=== PATIENT | male | born 1940 | race Caucasian/White ===

== ENCOUNTER 2020-08-14 11:56 | Inpatient (IN) | payer BC ==
[~2020-08-14] VITALS: Ht 182.9 cm; Wt 83.9 kg
[2020-08-14 13:43] LABS: ABSOLUTE NEUTROPHILS 2.2 thou/uL (1.4-8.2); BASOPHILS 0.5 % (0.0-2.0); EOSINOPHILS 3.1 % (0.0-3.0); HEMATOCRIT 34.8 % (42.0-52.0); HEMOGLOBIN 11.4 gm/dL (14.0-18.0); MCH 31.9 pg (26.0-34.0); MCHC 32.9 g/dL (28.0-37.0); MCV 97.2 fL (80.0-100.0); MONOCYTES 11.8 % (1.0-8.0); PLATELET COUNT 99 thou/uL (150-400); POLYS 65.6 % (36.0-66.0); RBC 3.58 mil/uL (4.50-6.00); RDW 16.2 % (10.5-14.5); WBC 3.3 thou/uL (4.0-11.0)
[2020-08-14 15:04] LABS: ALBUMIN 2.4 g/dL (3.4-5.0); ANION GAP 9 mmol/L (7-16); BUN 12 mg/dL (7-18); CALCIUM 8.1 mg/dL (8.5-10.1); CHLORIDE 103 mmol/L (98-107); CHOLESTEROL 122 mg/dL (<200); CO2 26 mmol/L (21-32); CREATININE 1.1 mg/dL (0.7-1.3); GLUCOSE 96 mg/dL (74-106); HDL CHOLESTEROL 38 mg/dL (>40); LDL CHOLESTEROL 75 mg/dL (<100); POTASSIUM 4.2 mmol/L (3.5-5.1); SGOT 29 U/L (15-37); SGPT 31 U/L (30-65); SODIUM 138 mmol/L (136-145); TC:HDL 3.2 Ratio (Not establshd); TOTAL PROTEIN 6.4 g/dL (6.4-8.2); TRIGLYCERIDE 47 mg/dL (<150); TROPONIN-I 0.24 ng/mL (<0.06); VLDL 9 mg/dL (<40)
[2020-08-14 15:45] VITALS: BP 119/61
[2020-08-14 15:58] LABS: FOLIC ACID 4.3 ng/mL (8.6-58.9)
[2020-08-14] MEDS ORDERED: TYLENOL325 M1 PO (16:10)
[2020-08-14] MEDS ORDERED: ELIQUIS5 MG PO (16:18)
[2020-08-14] MEDS ORDERED: FLONASE 0.05%50 MCG NASAL (16:21)
[2020-08-14] MEDS ORDERED: LISINOPRIL10 MG PO (16:22)
[2020-08-14] MEDS ORDERED: PROTONIX40 M2 PO (16:23)
[2020-08-14] MEDS ORDERED: VITAMIN D350 MC3 PO (16:25)
[2020-08-14 21:00] VITALS: BP 108/55
[2020-08-15 04:03] LABS: HEMATOCRIT 32.9 % (42.0-52.0); HEMOGLOBIN 11.1 gm/dL (14.0-18.0); MCH 32.6 pg (26.0-34.0); MCHC 33.8 g/dL (28.0-37.0); MCV 96.3 fL (80.0-100.0); RBC 3.42 mil/uL (4.50-6.00); RDW 16.4 % (10.5-14.5); WBC 3.2 thou/uL (4.0-11.0)
[2020-08-15 04:15] LABS: CALCIUM 8.1 mg/dL (8.5-10.1); CREATININE 1.1 mg/dL (0.7-1.3); POTASSIUM 4.2 mmol/L (3.5-5.1)
[2020-08-15 04:31] VITALS: BP 106/59
[2020-08-15 07:16] VITALS: BP 111/62
[2020-08-15 11:27] VITALS: BP 102/62
[2020-08-15 15:50] VITALS: BP 108/59
[2020-08-15 20:03] VITALS: BP 119/66
[2020-08-16 04:33] VITALS: BP 102/56
[2020-08-16 08:01] VITALS: BP 106/58
[2020-08-16] MEDS ORDERED: NORCO5 PO (09:48)
[2020-08-16 11:00] VITALS: BP 106/58
== END 2020-08-16 12:30 | disposition home or self-care (01) | DRG 175 ==
LOC: 2N 11:56
PROVIDERS: ADMIT Hospitalist; ATTEND Hospitalist
DX: I26.99 Other pulmonary embolism without acute cor pulmonale (principal); E43 Unspecified severe protein-calorie malnutrition; I50.33 Acute on chronic diastolic (congestive) heart failure; D61.818 Other pancytopenia; R77.8 Other specified abnormalities of plasma proteins; I10 Essential (primary) hypertension; K21.9 Gastro-esophageal reflux disease without esophagitis; E78.5 Hyperlipidemia, unspecified; I27.20 Pulmonary hypertension, unspecified; Z86.718 Personal history of other venous thrombosis and embolism; Z92.21 Personal history of antineoplastic chemotherapy; Z85.01 Personal history of malignant neoplasm of esophagus; Z79.899 Other long term (current) drug therapy
CPT/HCPCS: 10081

== ENCOUNTER → 2020-09-02 | Outpatient (CLI) | payer BC ==
[~2020-09-02] MED LIST: ELIQUIS5 MG PO; FLONASE 0.05%50 MCG NASAL; LISINOPRIL10 MG PO; NORCO5 PO; PROTONIX40 M2 PO; TYLENOL325 M1 PO; VITAMIN D350 MC3 PO
== END ==
LOC: SJCVCIMAG 09:01
PROVIDERS: ATTEND Internal Medicine
DX: I08.0 Rheumatic disorders of both mitral and aortic valves (principal); I11.0 Hypertensive heart disease with heart failure; I50.9 Heart failure, unspecified; R00.0 Tachycardia, unspecified; R07.89 Other chest pain; E78.5 Hyperlipidemia, unspecified; Z87.891 Personal history of nicotine dependence; Z79.899 Other long term (current) drug therapy

== ENCOUNTER → 2020-11-02 | Outpatient (CLI) | payer BC | LOC: SJCVC 09:19 | PROVIDERS: ATTEND Internal Medicine | DX: I10 Essential (primary) hypertension (principal); K21.9 Gastro-esophageal reflux disease without esophagitis; E78.5 Hyperlipidemia, unspecified; E03.9 Hypothyroidism, unspecified; Z79.899 Other long term (current) drug therapy; Z86.718 Personal history of other venous thrombosis and embolism; Z86.711 Personal history of pulmonary embolism; Z87.891 Personal history of nicotine dependence ==

== ENCOUNTER 2021-03-04 12:42 | Inpatient (IN) | payer OTHER ==
[~2021-03-04] VITALS: Ht 182.9 cm; Wt 81.1 kg
[~2021-03-04 12:42] MED LIST changes: -TYLENOL325 M1 PO; +TYLENOL325 M1 RECTAL
[2021-03-04 16:15] VITALS: BP 99/66
--- NOTE | 2021-03-04 18:05 | NUR ---
Pt received on to unit @ approx. 1615. Pt A&O x4, on 3L NC, ST on the monitor. Pt was direct admit from [place] for weakness, difficulty swallowing, & elevated trop. Admission assessment completed, forms signed & posted in chart. Family updated.
[2021-03-04 18:07] LABS: URINE BLOOD NEGATIVE (Negative); URINE CLARITY CLEAR; URINE COLOR YELLOW; URINE GLUCOSE-RANDOM* NEGATIVE (Negative); URINE KETONES TRACE (Negative); URINE LEUKOCYTES-REFLEX NEGATIVE (Negative); URINE NITRITE-REFLEX NEGATIVE (Negative); URINE PROTEIN (DIPSTICK) TRACE (Negative); URINE SPECIFIC GRAVITY 1.025 (1.005-1.035); URINE UROBILINOGEN 0.2 E.U./dl (0.2-1.0)
[2021-03-04 18:11] LABS: ICTOTEST (BILI CONFIRMATORY) Negative (Negative); URINE BILIRUBIN NEGATIVE (Negative)
[2021-03-04] MEDS ORDERED: LASIX 40 MG TAB40 MG PO (19:04)
[2021-03-04] MEDS ORDERED: K-TAB ER20 MEQ PO (19:05)
[2021-03-04 19:59] VITALS: BP 99/63
[2021-03-05] VITALS (17 sets, daily range): BP systolic 71–124; BP diastolic 42–68
--- NOTE | 2021-03-05 04:32 | NUR ---
RECEIVED THE PATIENT AT 1900H.ASSESSMENT DONE CHARTED.MEDS GIVEN PER MAY.NO COMPLAINTS OF PAIN DURING THIS SHIFT.ALL NEEDS ATTENDED.TO CONTINOUSLY MONITOR.
[2021-03-05 04:43] LABS: ABSOLUTE NEUTROPHILS 3.2 thou/uL (1.4-8.2); BASOPHILS 0.8 % (0.0-2.0); EOSINOPHILS 3.2 % (0.0-3.0); HEMATOCRIT 28.6 % (42.0-52.0); HEMOGLOBIN 8.7 gm/dL (14.0-18.0); LYMPHOCYTES 14.9 % (24.0-44.0); MCH 24.9 pg (26.0-34.0); MCHC 30.5 g/dL (28.0-37.0); MCV 81.8 fL (80.0-100.0); MONOCYTES 11.3 % (1.0-8.0); PLATELET COUNT 116 thou/uL (150-400); POLYS 69.8 % (36.0-66.0); RDW 20.6 % (10.5-14.5); WBC 4.6 thou/uL (4.0-11.0)
[2021-03-05 04:50] LABS: ALBUMIN 2.3 g/dL (3.4-5.0); CREATININE 1.1 mg/dL (0.7-1.3); MAGNESIUM 1.6 mg/dL (1.8-2.4); POTASSIUM 4.5 mmol/L (3.5-5.1); TOTAL BILIRUBIN 0.9 mg/dL (0.2-1.0); TOTAL PROTEIN 5.6 g/dL (6.4-8.2)
[2021-03-05 04:54] LABS: CHOLESTEROL 92 mg/dL (<200); HDL CHOLESTEROL 26 mg/dL (>40); LDL CHOLESTEROL 58 mg/dL (<100); TC:HDL 3.5 Ratio (Not establshd); TRIGLYCERIDE 42 mg/dL (<150); VLDL 8 mg/dL (<40)
[2021-03-05 04:55] LABS: SERUM ASSESSMENT Clear
--- NOTE | 2021-03-05 10:51 | EKG ---
[address] [address] ELECTROCARDIOGRAM REPORT Name: LIZZIE VICENTE V Room #: 214-P ADM IN M.R.#: [id number] Admission: 03/04/21 Attend Phys: Reg Albright MD Discharge: Date of : 38 Report #: [id number] [facility] Test Date: 2021-03-05 Test Time: 07:52:51 Pat Name: LIZZIE VICENTE Department: Room: 214 P Gender: M Clerical Administrator: : 1940 Requested By: Reg Albright Order Number: [id number] MD: Michel Bella Measurements Intervals [place] Rate: 104 P: 12 IA: 147 QRS: -21 QRSD: 91 T: 49 QT: 363 QTc: 478 Interpretive Statements Sinus tachycardia Inferior infarct, old Compared to ECG 03/04/2021 18:43:38 No significant changes Electronically Signed On 03-05-2021 10:51:07 PLATFORM CONSULTANT by Michel Bella [email or web address] <ELECTRONICALLY SIGNED> By: Michel Bella MD 03/05/21 1051 [id number] Michel Bella MD /EPI
--- NOTE | 2021-03-05 10:57 | EKG ---
[address] [address] ELECTROCARDIOGRAM REPORT Name: LIZZIE VICENTE V Room #: 214-P ADM IN M.R.#: [id number] Admission: 03/04/21 Attend Phys: Reg Albright MD Discharge: Date of : 38 Report #: [id number] [facility] Test Date: 2021-03-04 Test Time: 18:43:38 Pat Name: LIZZIE VICENTE Department: Room: 214 P Gender: M Donor Services Manager: SONDRA : 1940 Requested By: Reg Albright Order Number: [id number] MD: Michel Bella Measurements Intervals [place] Rate: 115 P: 3 MN: 123 QRS: -18 QRSD: 98 T: QT: 339 QTc: 469 Interpretive Statements Sinus tachycardia Inferior infarct, old Anteroseptal infarct, old No previous ECG available for comparison Electronically Signed On 03-05-2021 10:57:18 TOLL TEST DESK WORKER by Michel Bella [email or web address] <ELECTRONICALLY SIGNED> By: Michel Bella MD 03/05/21 1057 1843 [id number] Michel Bella MD /EPI
--- NOTE | 2021-03-05 17:07 | 2DMMODE ---
[facility] [place] [address] 2 D/M-MODE ECHOCARDIOGRAM Name: LIZZIE VICENTE V Room #: 214-P ADM IN M.R.#: [id number] Admission: 03/04/21 Attend Phys: eRg Albright MD Discharge: Date of : 38 Report #: [id number] THIS REPORT FOR: cc: FAM - Family physician unknown FAM - Family physician unknown Michel Bella MD ~ APPROVED REPORT Study performed: 03/05/2021 11:08:33 EXAM: Comprehensive 2D, Doppler, and color-flow Echocardiogram Patient Location: In-Patient Room #: 214 Status: routine BSA: 2.00 HR: 115 bpm Rhythm: Atrial Fibrillation Other Information Study Quality: Adequate Indications Atrial Fibrillation 2D Dimensions IVSd: 10.49 (7-11mm) LVOT Diam: 22.77 (18-24mm) LVDd: 56.87 mm PWd: 8.90 (7-11mm) LVDs: 45.52 (25-40mm) Left Atrium: 46.19 (27-40mm) Aortic Root: 27.37 mm Volumes Left Atrial Volume (Systole) Single Plane 4CH: 57.90 mL Single Plane 2CH: 35.54 mL Aortic Valve AoV Peak Corey.: 1.29 m/s AO Peak Gr.: 7.19 mmHg LVOT Max P.45 mmHg LVOT Max V: 0.78 m/s HARPAL Vmax: 2.47 cm2 Tricuspid Valve [facility] [address] [place] [address] 2 D/M-MODE ECHOCARDIOGRAM Name: LIZZIE VICENTE V Room #: 214-P ADM IN M.R.#: [id number] Admission: 03/04/21 Attend Phys: Reg Albright MD Discharge: Date of : 38 Report #: [id number] Peak Corey.: 2.30 m/s TR Peak Gr.: 21.07 mmHg Left Ventricle Left ventricle is mildly dilated. There is global hypokinesis of the left ventricle. There is normal left ventricular wall thickness. Left ventricular systolic function is severely decreased. LVEF is 25%. Right Ventricle The right ventricle is normal size. The right ventricular systolic function is normal. Atria The left atrium size is normal. The right atrium size is normal. Aortic Valve The aortic valve is normal in structure. Mild aortic regurgitation. There is no aortic valvular stenosis. Mitral Valve The mitral valve is normal in structure. Mild mitral regurgitation. No evidence of mitral valve stenosis. Tricuspid Valve The tricuspid valve is normal in structure. Mild tricuspid regurgitation. Estimated PAP 40 mmHg. Pulmonic Valve The pulmonary valve is normal in structure. There is no pulmonic valvular regurgitation. Great Vessels The aortic root is normal in size. IVC is dilated and collapses <50% with inspiration. Pericardium There is no pericardial effusion. Critical Notification Critical Value: No <Conclusion> Left ventricle is mildly dilated. Left ventricular systolic function is severely decreased. [facility] [address] [place] [address] 2 D/M-MODE ECHOCARDIOGRAM Name: LIZZIE VICENTE V Room #: 214-P ADM IN M.R.#: [id number] Admission: 03/04/21 Attend Phys: Reg Albright MD Discharge: Date of : 38 Report #: [id number] The right ventricle is normal size. The left atrium size is normal. Mild aortic regurgitation. Mild mitral regurgitation. Mild tricuspid regurgitation. Estimated PAP 40 mmHg. <ELECTRONICALLY SIGNED> By: Michel Bella MD 03/05/211705 05 05 Michel Bella MD /INF
--- NOTE | 2021-03-05 18:14 | NUR ---
At approximately 1600, patient began to become more tachycardic,short of breathe, and fatigued. Called Dr. Albright to update and we reviewed his care. Dr. Albright spoke to the patient to discuss his wishes, POC, and different treatment options. Osmin decided to be DNR and medically treat his CHF and SOB. Lasix and brething treatment was given and help relieved symptoms. Step son was called and update per patietn request. Will continue to monitor.
[2021-03-06] VITALS (63 sets, daily range): BP systolic 76–106; BP diastolic 44–74
--- NOTE | 2021-03-06 00:53 | NUR ---
PT ARRIVED TO ICU ACCOMPANIED BY CCU RN, GABE, AND EKG TECHNICIAN, G, AT 0010. LEVOPHED GTT STARTED FOR HYPOTENSION PER ORDER. PT DROWSY AND ORIENTED X4. PT DENIES ANY PAIN/DISCOMFORT. ST WITH FREQUENT PVCs ON THE MONITOR. EDEMA TO BLE AND JVD NOTED. PT ON 6L NC ON ARRIVAL. DENIES ANY SOB OR DIFFICULTY BREATHING. WILL CONTINUE TO MONITOR.
--- NOTE | 2021-03-06 02:27 | NUR ---
RECEIVED PATIENT AT 1900H.PATIENT IS ALERT AND ORIENTED X4.APPEARS TO HAVE SHORTNESS OF BREATH, TACHYPNEIC RESPIRATION IS 30'S, HAVING SOME WHEEZING, SATURATING 98% ON NASAL CANNULA AT 6LPM.PATIENT IS TACHYCARDIC, HR IS 150-160'S.EKG DONE AND IT WAS SHOWING SVT, INITIAL BLOOD PRESSURE WAS 112/54MMHG.INFORMED REVENUE OFFICER ON DUTY OF THE PATIENT'S CURRENT STATUS.SHE ORDERED TO GIVE METOPROLOL 2.5MG STAT THEN ANOTHER 2.5 MG AFTER 30 MINUTES IF BP IS OK.ORDERS CARRIED OUT.CALLED CARDIOLOGY AND SPOKE WITH DR. JOLENE FRY AND INFORMED HIM OF THE PATIENT'S CURRENT STATUS.HE ORDERED TO INSERT A OROZCO CATHETER AND TO GIVE STAT DOSE OF LASIX 40 MG IV AND TO START ON LASIX INFUSION.OROZCO CATHETER INSERTED ASEPTICALLY.AFTER THE FIRST DOSE OF METOPROLOL 2.4 MG, BLOOD PRESSURE DROPPED RECORDERED.BLOOD PRESSURE MONITORING DONE AND CHARTED.CALLED AGAIN DR. JOLENE FRY AND INFORMED HIM OF THE PATIENT'S CURRENT STATUS.ANOTHER DOSE OF METOPROLOL 2.5MG NOT BEEN GIVEN THE BLOOD PRESSURE IS ON THE LOW SIDE.DR. JOLENE FRY ORDERED TO HOLD GIVING THE STAT IV LASIX AND NOT TO START THE LASIX INFUSION.PATIENT HAD ABOUT 300 MLS OF URINE OUTPUT AFTER INSERTING THE OROZCO CATHETER.PATIENT APPEARS TO BE LESS LABORED BREATHING COMPARED BEFORE HE HAD URINE OUTPUT.MONITOR SHOWS SINUS TACHYCARDIA WITH RATE OF 120-130'S,DR. FRY INFORMED.BLOOD PRESSURE SLOWLY DROPS TO THE SYTOLIC OF 70'S, SEE VITAL SIGNS MONITORING.REVENUE OFFICER INFORMED OF THE PATIENT'S CURRENT VITAL SIGNS,REVENUE OFFICER ORDERED A DOSE OF ALBUMIN WHICH WAS GIVEN BUT BLOOD PRESSURE WAS STILL LOW.REVENUE OFFICER AND DR. JOLENE FRY WERE AWARE OF PATIENT'S DNR STATUS. PER REVENUE OFFICER TO TRANSFER PATIENT TO ICU TO BE STARTED ON LEVOPHED.TRANSFERED TO ICU AROUND 0010H, REPORT WAS GIVEN TO NURSE WILLIAMSON.
[2021-03-06 02:39] LABS: HEMOGLOBIN 8.9 gm/dL (14.0-18.0); MCH 24.7 pg (26.0-34.0); MCHC 30.6 g/dL (28.0-37.0); MCV 80.9 fL (80.0-100.0); RBC 3.59 mil/uL (4.50-6.00); RDW 20.9 % (10.5-14.5)
[2021-03-06 02:46] LABS: CREATININE 1.7 mg/dL (0.7-1.3); POTASSIUM 3.9 mmol/L (3.5-5.1)
[2021-03-06 02:47] LABS: WBC 20.4 thou/uL (4.0-11.0)
--- NOTE | 2021-03-06 04:00 | NUR ---
TRIED TO CONTACT THE PATIENT'S STEPSONALFIE OVER THE PHONE TO INFORM HIM OF THE PATIENT'S CURRENT SITUATION AND TO INFORM THAT THE PATIENT HAS BEEN MOVED TO THE ICU BUT I WAS UNABLE TO CONTACT HIM.RELAYED TO ICU NURSE CLAY THAT I WAS NOT ABLE TO CONTACT HIS STEPSON.
[2021-03-06 21:45] LABS: % SATURATION 5 % (20-39); IRON 16 ug/dL (65-175); TIBC 304 ug/dL (250-450)
[2021-03-07] VITALS (68 sets, daily range): BP systolic 87–116; BP diastolic 51–76
--- NOTE | 2021-03-07 | NUR ---
PT NPO NOW FOR AM EGD
[2021-03-07 04:36] LABS: INR 1.22; PROTIME 13.2 Seconds (10.5-12.1)
[2021-03-07 05:08] LABS: ABSOLUTE NEUTROPHILS 12.7 thou/uL (1.4-8.2); BASOPHILS 0.4 % (0.0-2.0); EOSINOPHILS 0.2 % (0.0-3.0); HEMATOCRIT 30.9 % (42.0-52.0); HEMOGLOBIN 9.2 gm/dL (14.0-18.0); LYMPHOCYTES 5.9 % (24.0-44.0); MCH 24.2 pg (26.0-34.0); MCHC 29.6 g/dL (28.0-37.0); MCV 81.7 fL (80.0-100.0); MONOCYTES 7.6 % (1.0-8.0); PLATELET COUNT 106 thou/uL (150-400); POLYS 85.9 % (36.0-66.0); RBC 3.78 mil/uL (4.50-6.00); RDW 21.8 % (10.5-14.5); WBC 14.7 thou/uL (4.0-11.0)
[2021-03-07 05:12] LABS: ALBUMIN 2.6 g/dL (3.4-5.0); CALCIUM 8.1 mg/dL (8.5-10.1); MAGNESIUM 2.4 mg/dL (1.8-2.4); POTASSIUM 4.3 mmol/L (3.5-5.1); TOTAL BILIRUBIN 1.1 mg/dL (0.2-1.0); TOTAL PROTEIN 5.9 g/dL (6.4-8.2)
--- NOTE | 2021-03-07 06:00 | NUR ---
PT AWAKE AND ALERT, ORIENTED. LEVOPHED GTT TITRATED TO 4 MCG SBP 100/65 MAP 70 REMAINS NPO FOR EGD THIS AM. BATHED. 230 CC UO THIS SHIFT. PT IS A DNR WILL CONT TO MONITOR.
--- NOTE | 2021-03-07 07:17 | NUR ---
PATIENT TRANSFERRED TO ICU, WILL NEED NEW ORDERS ONCE PATIENT IS MEDICALLY APPROPRIATE.
--- NOTE | 2021-03-07 07:30 | NUR ---
PTS SON ALFIE CALLLED AND GIVEN A CONDITION REPORT
--- NOTE | 2021-03-07 07:30 | NUR ---
DR ROGERS HERE TO SEE PT. MADE AWARE OF UO 230 CC. WANTS TO TRY TO\ WEAN OFF LEVO GTT BEFORE EGD
--- NOTE | 2021-03-07 07:53 | NUR ---
ORDERS FOR EVAL AND TREAT HOWEVER Pt TRANSFERRED TO ICU. WILL PLACE ON HOLD AND AWAIT NEW ORDERS WHEN APPROPRIATE
--- NOTE | 2021-03-07 08:54 | EKG ---
[place] [address] [facility] [employer] [place] [address] ELECTROCARDIOGRAM REPORT Name: LIZZIE VICENTE V Room #: 251-P ADM IN M.R.#: [id number] Admission: 03/04/21 Attend Phys: Reg Albright MD Discharge: Date of : 38 Report #: [id number] [facility] Test Date: 2021-03-05 Test Time: 19:37:36 Pat Name: LIZZIE VICENTE Department: Room: 251 Gender: M Sexual Health Physician: JUN : 1940 Requested By: Josi Hunt Order Number: [id number] MD: Chon Baca Measurements Intervals [place] Rate: 162 P: 268 ME: 90 QRS: -40 QRSD: 80 T: 162 QT: 301 QTc: 495 Interpretive Statements Supraventricular tachycardia Inferior infarct, old Poor R wave progression Lateral leads are also involved Compared to ECG 03/05/2021 07:52:51 Supraventricular tachycardia is now present Electronically Signed On 03-07-2021 8:54:14 BOARD SAW RUNNER by Chon Baca [email or web address] <ELECTRONICALLY SIGNED> By: Chon Baca MD, [facility] 03/07/2154 36 36 Chon Baca MD, [facility]ACC /EPI
--- NOTE | 2021-03-07 14:14 | NUR ---
PT ADMITTED RELATED TO CHEST PAIN. CM REVIEWED CHART AND SPOKE WITH CARE TEAM. PT'S CARES WERE DISCUSSED DURING ICU ROUNDS THIS DAY. CM MET WITH PT AT BEDSIDE THIS DAY. PT INDICATED HE LIVES IN A HOUSE IN [facility] AND THAT HIS STEP SON AND HIS RESIDE WITH HIM. PT INDICATED 2 STEPS TO ENTER AND NO STEPS HE USES INSIDE. 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 CM SPOKE WITH PT ABOUT ELECTING HOSPICE SERVICES UPON DC HOME AND HE IS AGREEABLE. CM ASKED IF PT HAD ANY PREFERANCE FOR [facility] AND HE INDICATED HE DIDN'T. CM CALLED AND SPOKE WITH ALFIE ALBARADO PT'S STEP SON AND HE INDICATED THAT PT HAD BEEN IN SERVICE WITH A HOSPICE AND THEY REVOKED SERVICES 02/28 TO PURSUE CURATIVE/DIAGNOSTIC TREATMENTS. STEP SON INDICATED THAT NOW THEY INDERSTAND WHAT'S GOING ON WITH PT AND ARE AGAIN ACCEPTING AND UNDERSTANDING OF ELECTION OF HOSPICE SERVIES. HE STATED NO PREFERANCE OF PROVIDERS JUST NOT [facility]. CM ASKED IF CM COULD SEND REFERRAL TO [facility] AND HE WAS AGREEABLE. CM FOLLOWED UP WITH PT AND ASKED IF REFERRAL TO [facility] WAS OK AND PT INDICATED HE HAD USED [facility] AND WANTED THEM. CM CALLED [facility] AND THEY DIDN'T HAVE RECORD OF PT ON SERVICES. CM FOLLOWED UP WITH PT AND HE INDICATED HE HAD SERVICES WITH THEM IN 2013. HE STATED HE WOULD LIKE TO USE THEM AGAIN. CM FAXED REFERRAL TO [facility]. THEY INDICATED THEY HAD PT ON SERVICE [phone]. THEY CAN ACCEPT BUT INDICATED THAT THEIR BINITROTOLUENE OPERATOR WOULD NEED O DO A FACE TO FACE. THEY INDICATED CAN BE DONE IN THE HOME AFTER DC BEFORE 1700. THEY INDICATED THEY WOULD PREFER DC TOMORROW IT IS ALREADY 1422. CM NOTIFIED PT'S NURSE, PT, HOSPITALIST, AND PT'S STEP SON. CM WILL FAX ORDERS TO [facility] IN THE AM AND SET UP AMBULANCE TRANSPORT.
[2021-03-08] VITALS (12 sets, daily range): BP systolic 89–100; BP diastolic 56–63
--- NOTE | 2021-03-08 05:30 | NUR ---
PT RESTING QUIETLY. LEVOPHED GTT TITRATED OFF. SBP 98/58 MAP 68 REMAINS A DNR WILL GO HOME TODAY WITH HOSPICE. PROGRESSING TOWARD GOALS LEVO GTT OFF AND ARRANGEMENTS MADE FOR PT TO GO HOME.
--- NOTE | 2021-03-08 07:00 | NUR ---
PTS SON DEBBIE CALLED AND GIVEN A CONDITION REPORT. HE WANTS US TO CALL HIM APPROX 2 HRS BEFORE HE WOULD COME HOME.
[2021-03-08] MEDS ORDERED: DULCOLAX10 MG RECTAL (12:53)
[2021-03-08] MEDS ORDERED: LORAZEPAM I2 MG/1 M2 SUBLING (12:53)
[2021-03-08] MEDS ORDERED: AKWA TEARS OIN3.5 GM OPHTHALMIC (12:56)
--- NOTE | 2021-03-08 13:05 | NUR ---
CARE TEAM INDICATED THAT PT IS MEDICALLY STABLE TO DC HOME THIS DAY [facility]. APPARENTLY ALTHOUGH CM HAD SPOKEN WITH PT'S STEP SON YESTERDAY AND HAD INDICATED THAT WE WOULD ARANGE AMBULANCE TRANSPORT HOME ONCE EVERYTHING IS ARANGED ALFIE SPOKE WITH PT THIS AM AND ARRIVED AT HOSPITAL ANTICIPATING TRANSPORTING PT HOME. CM SPOKE WITH HIM THIS AFTERNOON AND REITERATED THAT ABOVE. CM INDICATED THAT CM HAD ARRANGED AMBULANCE TRANSPORT AND THAT WE WERE AWAITING DC ORDERS. ORDERS COMPLETED. CM FAXED DC ORDERS TO [facility]. CM OR NURSE TO CALL ALFIE AND [facility] TO NOTIFY THEM WHEN PT IS DEPATING HOSPITAL. OUTSIDE HOSPITAL DNR FORM COMPLETED. NO OTHER CM INTERVENTION INDICATED. CASE CLOSED.
--- NOTE | 2021-03-08 13:55 | NUR ---
CONSULT WAS COMPLETED BY THIS ENVIRONMENTAL SERVICES ASSISTANT WHEN HE WAS IN ICU 251. PATIENT IS GOING HOME TODAY WITH HOSPICE CARE TO HIS SON AND DAUGHTER IN [facility]. WE DISCUSSED END OF LIFE ISSUES AND CONSIDERATIONS. WE CONCLUDED IN PRAYER.
== END 2021-03-08 17:43 | disposition hospice, home (50) | DRG 291 ==
LOC: 2N 12:42 → ICU 16:23 → 2N 16:23 → ICU 03-06 00:04
PROVIDERS: Dermatology; Internal Medicine; Internal Medicine Pulmonary Disease; Nurse Practitioner; ADMIT Internal Medicine; ATTEND Internal Medicine
DX: I11.0 Hypertensive heart disease with heart failure (principal); J96.01 Acute respiratory failure with hypoxia; I50.23 Acute on chronic systolic (congestive) heart failure; C15.9 Malignant neoplasm of esophagus, unspecified; D68.59 Other primary thrombophilia; R13.10 Dysphagia, unspecified; R77.8 Other specified abnormalities of plasma proteins; E78.5 Hyperlipidemia, unspecified; E03.9 Hypothyroidism, unspecified; K21.9 Gastro-esophageal reflux disease without esophagitis; R53.81 Other malaise; E83.42 Hypomagnesemia; I95.9 Hypotension, unspecified; Z66 Do not resuscitate; Z28.21 Immunization not carried out because of patient refusal; Z85.118 Personal history of other malignant neoplasm of bronchus and lung; Z87.891 Personal history of nicotine dependence; Z86.711 Personal history of pulmonary embolism; Z86.718 Personal history of other venous thrombosis and embolism
CPT/HCPCS: 10078; 10081